=== PATIENT | male | born 1985 | race Caucasian/White ===

== ENCOUNTER 2017-12-22 10:38 | Emergency (ER) | payer OTHER ==
[~2017-12-22 10:38] MED LIST: DICL50TA3 PO; METH750T2 PO; VIST25CA PO; Z.0.NO CURRENT MEDS; ZITH250T PO
[2017-12-22 10:40] VITALS: BP 146/82; PULSE 100; RESP 12; TEMP 98.4; O2SAT 100
[2017-12-22 11:35] LABS: BILIRUBIN, URINE NEG (NEG); BLOOD, URINE NEG (NEG); GLUCOSE,URINE NEG (NEG); KETONE, URINE NEG (NEG); NITRITE,URINE NEG (NEG); SQUAMOUS EPITHELIAL CELL URINE <1 /hpf (0-5); URINE COLOR LIGHT-YELLOW (YELLW/STRAW); URINE LEUKOCYTE ESTERASE NEG (NEG)
[2017-12-22] MEDS ORDERED: LIDOCAINE HCL 1% 50 ML VIAL XX ONE (12:00)
[2017-12-22] MEDS ORDERED: cefTRIAXone 250 MG VIAL IM ONE (12:00)
[2017-12-22] MEDS ORDERED: AZITHROMYCIN 250 MG TAB PO ONE (12:00)
--- NOTE | 2017-12-22 12:01 | PD ---
HPI Chief Complaint: Complaint Time Seen by Provider: 11:54 Travel History International Travel<30 days: No Contact w/Intl Traveler<30days: No Traveled to known affect area: No History of Present Illness HPI 32-year-old male presents for evaluation of dysuria. Symptoms started 2-3 days ago. He reports a burning sensation when he urinates with slight itching in association as well. Denies any urethral discharge, testicular or scrotal pain , abdominal pain, nausea or vomiting, fevers or chills. He is circumcised. Last sexually active June 2017. No other complaints. PFSH Past Medical History Arthritis: Yes Musculoskeletal: Yes (DDD) Social History Alcohol Use: Yes (OCC) Tobacco Use: No Substance Use: No Allergies-Medications (Allergen,Severity, Reaction): Coded Allergies: acetaminophen (Unverified Allergy, Severe, 12/22/17) propoxyphene (Unverified Allergy, Severe, 12/22/17) Reported Meds & Prescriptions Reported Meds & Active Scripts Active Review of Systems General / Constitutional: No: Fever, Chills Gastrointestinal: No: Nausea, Vomiting, Diarrhea Genitourinary: Positive: Dysuria, No: Flank Pain Skin: Positive Itching, No Rash Physical Exam Narrative GENERAL: Well-developed well-nourished male in no acute distress SKIN: Warm and dry. HEAD: Atraumatic. Normocephalic. EYES: Pupils equal and round. No scleral icterus. No injection or drainage. ENT: No nasal bleeding or discharge. Mucous membranes pink and moist. NECK: Trachea midline. No JVD. CARDIOVASCULAR: Regular rate and rhythm. No murmur appreciated. RESPIRATORY: No accessory muscle use. Clear to auscultation. Breath sounds equal bilaterally. GASTROINTESTINAL: Abdomen soft, non-tender, nondistended. Hepatic and splenic margins not palpable. : Normal-appearing penile shaft and scrotum. Bilateral distended testicles are nontender. There is no urethral discharge. No genital skin lesions. MUSCULOSKELETAL: No obvious deformities. Data Data Last Documented VS Vital Signs Date Time Temp Pulse Resp B/P (MAP) Pulse Ox O2 Delivery O2 Flow Rate FiO2 12/22/17 10:40 98.4 100 12 146/82 (103) 100 Orders Orders Urinalysis - C+S If Indicated (12/22/17 10:57) Gc And Chlamydia Pcr (12/22/17 10:57) Azithromycin (Zithromax) (12/22/17 12:00) Ceftriaxone Inj (Rocephin Inj) (12/22/17 12:00) Lidocaine 1% Inj (50 Ml) (Xylocaine 1% I (12/22/17 12:00) Ed Discharge Order (12/22/17 11:57) Labs Laboratory Tests Test 12/22/17 11:00 Urine Color LIGHT-YELLOW Urine Turbidity CLEAR Urine pH 7.0 Urine Specific [place] 1.006 Urine Protein NEG mg/dL Urine Glucose (UA) NEG mg/dL Urine Ketones NEG mg/dL Urine Occult Blood NEG Urine Nitrite NEG Urine Bilirubin NEG Urine Urobilinogen LESS THAN 2.0 MG/DL Urine Leukocyte Esterase NEG Urine RBC LESS THAN 1 /hpf Urine WBC LESS THAN 1 /hpf Urine Squamous Epithelial Cells <1 /hpf Microscopic Urinalysis Comment CULT NOT INDICATED MDM Medical Decision Making Medical Screen Exam Complete: Yes Emergency Medical Condition: Yes Medical Record Reviewed: Yes Differential Diagnosis Gonococcal urethritis versus nongonococcal urethritis versus balanitis versus cystitis Narrative Course The patient's history is suspicious for urethritis. GC probe is pending. The patient will be given azithromycin and Rocephin pending results. Stable for discharge. Diagnosis Primary Impression: Urethritis Referrals: [facility] Dept. Additional Instructions: Follow-up with primary care physician or health department for routine STD testing. Return for any emergent medical conditions. Med/Other Pt SpecificInfo: No Change to Meds Disposition: 01 DISCHARGE HOME Condition: Stable Jcarlos Lam Dec 22, 2017 12:01
[2017-12-22] MEDS ORDERED: LIDOCAINE HCL 1% 20 ML VIAL OTHER ONE (12:15)
== END 2017-12-22 12:49 | disposition home or self-care (01) ==
LOC: NEPK 10:38
DX: N34.2 Other urethritis (principal)
CPT/HCPCS: 81001; 87491; 87591; 96372; 99283; J0696

== ENCOUNTER 2018-01-17 19:14 | Emergency (ER) | payer SELFPAY ==
[2018-01-17 19:38] VITALS: BP 137/81; PULSE 79; RESP 18; TEMP 98; O2SAT 100
[2018-01-18] MEDS ORDERED: CEPH-460 PO (11:21)
[2018-01-18] MEDS ORDERED: BACT800T5 PO (11:21)
== END 2018-01-17 22:33 | disposition left against medical advice (07) ==
LOC: NED 19:14
DX: T14.8XXA Other injury of unspecified body region, initial encounter (principal); W57.XXXA Bitten or stung by nonvenomous insect and other nonvenomous arthropods, initial encounter; Z53.21 Procedure and treatment not carried out due to patient leaving prior to being seen by health care provider

== ENCOUNTER 2018-01-18 10:31 | Emergency (ER) | payer SELFPAY ==
[~2018-01-18] VITALS: Ht 182.9 cm; Wt 85.7 kg
[2018-01-18 10:41] VITALS: BP 124/71; PULSE 81; RESP 18; TEMP 97.7; O2SAT 99
[2018-01-18] MEDS ORDERED: BACT800T5 PO (11:21)
[2018-01-18] MEDS ORDERED: CEPH-460 PO (11:21)
--- NOTE | 2018-01-18 11:23 | PD ---
HPI Chief Complaint: Skin Problem Time Seen by Provider: 11:04 Travel History International Travel<30 days: No Contact w/Intl Traveler<30days: No Traveled to known affect area: No History of Present Illness HPI 32-year-old male here with possible abscess to the left suprapubic region 4 days. He reports the area has a small central scab and small amount of drainage. Denies fever or chills. No abdominal pain. Symptom severity is moderate. No elevated alleviating factors. PFSH Past Medical History Medical History: Denies Significant Hx Arthritis: Yes Musculoskeletal: Yes (DDD) Influenza Vaccination: No ?: Not Past Surgical History Surgical History: No Previous Surgery Social History Alcohol Use: Yes (OCC) Tobacco Use: Yes Substance Use: Yes (MARIJUANA) Allergies-Medications (Allergen,Severity, Reaction): Coded Allergies: acetaminophen (Unverified Allergy, Severe, PT DENIES ALLERGY, 01/18/18) propoxyphene (Unverified Allergy, Severe, PT DENIES ALLERGY, 01/18/18) Reported Meds & Prescriptions Reported Meds & Active Scripts Active No Active Prescriptions or Reported Medications Review of Systems Except as stated in HPI: all other systems reviewed are Neg General / Constitutional: No: Fever Physical Exam Narrative GENERAL: Alert well-appearing 32-year-old male. SKIN: Warm and dry.SKIN: There is an indurated area in the left suprapubic region which measures about 3 cm in diameter. It is indurated with central scab. There is a zone of inflammation around it but no lymphangitis. HEAD: Normocephalic. EYES: No injection or drainage. NECK: Supple CARDIOVASCULAR: Regular rate and rhythm RESPIRATORY: Breath sounds equal bilaterally. No accessory muscle use. GASTROINTESTINAL: Abdomen soft, non-tender, nondistended. MUSCULOSKELETAL: No cyanosis. Moves extremities freely Data Data Last Documented VS Vital Signs Date Time Temp Pulse Resp B/P (MAP) Pulse Ox O2 Delivery O2 Flow Rate FiO2 01/18/18 10:41 97.7 81 18 124/71 (88) 99 MDM Medical Decision Making Medical Screen Exam Complete: Yes Emergency Medical Condition: Yes Differential Diagnosis Abscess, cellulitis, folliculitis Narrative Course 32-year-old male here with early abscess to the left suprapubic region. He is nontoxic appearing. I do not feel that the abscess was ready for drainage. The recommendation was the patient start antibiotics, warm compresses and return 2 days for drainage. he reports he was unable to return in 2 days and requested attempted incision and drainage today. I&D was performed with only bloody return. He'll be started on Keflex and Bactrim. Instructed to apply warm compresses. Follow-up with primary doctor in 2 days for recheck. He agrees to this plan Procedures Procedure Narrative INCISION AND DRAINAGE OF ABSCESS: The area was prepped and was sterilely draped. A subcutaneous wheal of 1 % Xylocaine with epi with a total number 1 mL was used to anesthetize the area properly. A number 11 scalpel was used to make a 0.5 -cm incision across the area of the abscess. irrigated with normal saline. Sterile dressing applied. Diagnosis Primary Impression: Abscess Referrals: Primary Care Physician Additional Instructions: Antibiotics as directed. Warm compresses to the area. Follow-up with her doctor in 2 days Return if new or worsening symptoms. Scripts Cephalexin (Keflex) 500 Mg Cap 500 MG PO Q6H for Infection for 10 Days, #40 CAP 0 Refills Prov: Elyssa Mcdonald 01/18/18 Sulfamethoxazole-Trimethoprim (Bactrim DS) 800-160 Mg Tab 1 TAB PO BID for Infection, #20 TAB 0 Refills Prov: Elyssa Mcdonald 01/18/18 Disposition: 01 DISCHARGE HOME Condition: Stable Elyssa Mcdonald Jan 18, 2018 11:23
== END 2018-01-18 11:32 | disposition home or self-care (01) ==
LOC: PHEFT 10:31
DX: L02.818 Cutaneous abscess of other sites (principal); Z72.0 Tobacco use
CPT/HCPCS: 10060

== ENCOUNTER 2018-02-25 11:21 | Emergency (ER) | payer SELFPAY ==
[~2018-02-25] VITALS: Ht 185.4 cm; Wt 81.0 kg
[~2018-02-25 11:21] MED LIST changes: +BACT800T5 PO; +CEPH-460 PO; -DICL50TA3 PO; -METH750T2 PO; -VIST25CA PO; -Z.0.NO CURRENT MEDS; -ZITH250T PO
[2018-02-25 11:25] VITALS: BP 116/72; PULSE 102; RESP 20; TEMP 99.2; O2SAT 98
--- NOTE | 2018-02-25 11:38 | PD ---
HPI Chief Complaint: Laceration/Skin Injury Time Seen by Provider: 11:34 Travel History International Travel<30 days: No Contact w/Intl Traveler<30days: No Traveled to known affect area: No History of Present Illness HPI 32-year-old male presents to the emergency department for evaluation of a laceration to the right inner thigh that occurred just prior to arrival. Patient was cutting darci with a circular saw when the wood got caught causing a circular saw to jump and lacerating his right leg. Patient states his tetanus immunization was 2 days ago. Current pain is 9/10, aching, throbbing, without radiation. Patient denies any chronic medical problems and takes no prescribed medications. Moderate severity. PFSH Past Medical History Arthritis: Yes Musculoskeletal: Yes (DDD) Social History Alcohol Use: Yes (OCC) Tobacco Use: Yes Substance Use: Yes (MARIJUANA) Allergies-Medications (Allergen,Severity, Reaction): Coded Allergies: No Known Allergies (Unverified , 02/25/18) Reported Meds & Prescriptions Reported Meds & Active Scripts Active Keflex (Cephalexin) 500 Mg Cap 500 Mg PO Q6H 10 Days Bactrim DS (Sulfamethoxazole-Trimethoprim) 800-160 Mg Tab 1 Tab PO BID Review of Systems Except as stated in HPI: all other systems reviewed are Neg Physical Exam Narrative GENERAL: Well-nourished, well-developed male patient, afebrile. SKIN: Focused skin assessment warm/dry. Patient has a 6 cm laceration to the right inner thigh that just extends into subcutaneous tissue. I can visualize the base of the wound. HEAD: Normocephalic. Atraumatic. EYES: No scleral icterus. No injection or drainage. NECK: Supple, trachea midline. No JVD or lymphadenopathy. CARDIOVASCULAR: Regular rate and rhythm without murmurs, gallops, or rubs. RESPIRATORY: Breath sounds equal bilaterally. No accessory muscle use. Lung sounds are clear to auscultation. MUSCULOSKELETAL: No cyanosis, or edema. Data Data Last Documented VS Vital Signs Date Time Temp Pulse Resp B/P (MAP) Pulse Ox O2 Delivery O2 Flow Rate FiO2 02/25/18 11:25 99.2 102 20 116/72 (87) 98 MDM Medical Decision Making Medical Screen Exam Complete: Yes Emergency Medical Condition: Yes Medical Record Reviewed: Yes Differential Diagnosis Laceration versus abrasion versus contusion Narrative Course 32-year-old male presents to the emergency department for evaluation of laceration to the right side. Patient gives verbal consent for laceration repair. Laceration is repaired without difficulty. With a patient will be discharged prescription for Keflex. He is instructed on proper wound care. Procedures Procedure Narrative LACERATION LOCATION: Right thigh LENGTH: 6 cm NUMBER OF STITCHES/KEVIN: 6 kevin REPAIR: The area of the laceration was prepped with Betadine and sterilely draped. The laceration was infiltrated with 1% lidocaine. The wound was copiously irrigated and explored without evidence of foreign body, tendon injury or neurovascular injury. The wound was closed using kevin. This was a single layer repair. A sterile dressing was applied. The patient was advised to keep the dressing clean and dry. Patient tolerated the procedure well. Diagnosis Primary Impression: Laceration of right thigh Qualified Codes: S71.111A - Laceration without foreign body, right thigh, initial encounter Referrals: Primary Care Physician as needed Patient Instructions: Care For Your Stitches (ED), General Instructions, Laceration (ED) Additional Instructions: Clean twice daily with soap and water and apply [id number] antibiotic ointment. Keep clean and dry. No swimming or hot tubs until laceration is healed. Take antibiotic as directed until gone. Take ibuprofen as directed as needed with food for pain. Staple removal in 14 days. You may follow up with your primary care physician return to the emergency department for this. Return to the emergency department for any acute worsening of symptoms. Med/Other Pt SpecificInfo: Prescription(s) given Scripts Cephalexin (Keflex) 500 Mg Cap 500 MG PO Q8H for Infection for 10 Days, #30 CAP 0 Refills Prov: Benita Mendes 02/25/18 Ibuprofen (Ibuprofen) 800 Mg Tab 800 MG PO TID Y for PAIN SCALE 1 TO 10, #21 TAB 0 Refills Prov: Benita Mendes 02/25/18 Disposition: 01 DISCHARGE HOME Condition: Stable Benita Mendes Feb 25, 2018 11:38
[2018-02-25] MEDS ORDERED: CEPH-460 PO (11:55)
[2018-02-25] MEDS ORDERED: IBUP1TAB7 PO (11:55)
== END 2018-02-25 12:13 | disposition home or self-care (01) ==
LOC: PHEFT 11:21
DX: S71.111A Laceration without foreign body, right thigh, initial encounter (principal); W31.2XXA Contact with powered woodworking and forming machines, initial encounter; M19.90 Unspecified osteoarthritis, unspecified site; F12.90 Cannabis use, unspecified, uncomplicated; Z72.0 Tobacco use
CPT/HCPCS: 12002